=== PATIENT | male | born 1945 | race American Indian/Alaskan Native ===

== ENCOUNTER 2018-02-28 02:29 | Emergency (ER) | payer MEDICARE ==
[2018-02-28] MEDS ORDERED: NACL 0.9% 1000 ML 1,000 ML IV ONE (04:46)
[2018-02-28] MEDS ORDERED: SUBLIMAZE IV ONE (04:52)
--- NOTE | 2018-02-28 04:53 | Event Note ---
Date: 02/28/18 Presenting with abdominal pain and urinary retention. Kimbrough catheter ordered. Pain medication ordered. Belly soft. Testicles nontender. Bladder distended. Vital Signs 02/28/18 02/28/18 02:52 04:00 Temperature 97.4 F L Pulse Rate 74 65 Respiratory 20 20 Rate Blood Pressure 168/96 Blood Pressure 158/67 [Left] O2 Sat by Pulse 100 98 Oximetry
[2018-02-28 05:06] LABS: Basophils # (Auto) 0.1 K/mm3 (0.0-0.1); Basophils % (Auto) 0.6 % (0.0-1.8); Eosinophils # (Auto) 0.1 K/mm3 (0.0-0.4); Eosinophils % (Auto) 1.4 % (0.0-4.3); Hematocrit 43.6 % (35.5-45.6); Hemoglobin 14.8 gm/dl (11.8-15.2); Lymphocytes # (Auto) 1.3 K/mm3 (1.2-5.4); Lymphocytes % (Auto) 13.5 % (13.4-35.0); Mean Corpuscular HGB Conc 34 % (32-34); Mean Corpuscular Hemoglobin 30 pg (28-32); Mean Corpuscular Volume 88 fl (84-94); Monocytes # (Auto) 0.6 K/mm3 (0.0-0.8); Monocytes % (Auto) 6.7 % (0.0-7.3); Platelet Count 296 K/mm3 (140-440); Red Blood Count 4.94 M/mm3 (3.65-5.03); Red Cell Distribution Width 14.8 % (13.2-15.2)
[2018-02-28 05:32] LABS: Alanine Aminotransferase 14 units/L (7-56); Albumin 4.2 g/dL (3.9-5); BUN/Creatinine Ratio 11; Blood Urea Nitrogen 9 mg/dL (9-20); Calcium 8.8 mg/dL (8.4-10.2); Hemolysis Index 0
[2018-02-28 05:38] LABS: Bilirubin,Urine NEG (Negative); Blood,Urine MOD (Negative); Color,Urine Straw (Yellow); Mucus,Urine FEW /HPF; Protein,Urine <15 mg/dL mg/dL (Negative); Urobilinogen,Urine < 2.0 mg/dL (<2.0); WBC,Urine < 1.0 /HPF (0.0-6.0)
[2018-02-28] MEDS ORDERED: NACL 0.9% 1000 ML 1,000 ML ONE (05:45)
--- NOTE | 2018-02-28 07:16 | Emergency Department Report ---
ED Male HPI - General Chief complaint: Abdominal Pain Stated complaint: ABD PAIN Time Seen by Provider: 02/28/18 07:07 Source: patient, EMS Mode of arrival: Stretcher Limitations: No Limitations - History of Present Illness Initial comments: Patient is 72 years old male with no significant past medical history but also stated that he does not follow-up as any doctor. Patient presented to the ER with acute urine retention started yesterday. Patient stated that he never had anything like this before. Patient denied any fever, nausea or vomiting. He also denied any penile discharge or dysuria or frequency before. MD Complaint: other (acute urinary retention) - Related Data Home Medications Medication Instructions Recorded Confirmed Last Taken No Known Home Medications [No 02/28/18 02/28/18 Unknown Reported Home Medications] Allergies Allergy/AdvReac Type Severity Reaction Status Date / Time No Known Allergies Allergy Verified 02/28/18 02:54 ED Review of Systems ROS: Stated complaint: ABD PAIN Other details as noted in HPI Comment: All other systems reviewed and negative Constitutional: denies: chills Respiratory: denies: orthopnea, shortness of breath, SOB with exertion, SOB at rest, wheezing Cardiovascular: denies: chest pain Gastrointestinal: denies: abdominal pain, nausea, vomiting, diarrhea, constipation, hematemesis Genitourinary: denies: urgency, dysuria, frequency, hematuria, discharge, testicular pain, testicular mass Neurological: denies: headache, weakness ED Past Medical Hx - Past Medical History Previous Medical History?: Yes Additional medical history: totally blind - Surgical History Past Surgical History?: No - Social History Smoking Status: Never Smoker Substance Use Type: None - Medications Home Medications: Home Medications Medication Instructions Recorded Confirmed Last Taken Type No Known Home Medications [No 02/28/18 02/28/18 Unknown History Reported Home Medications] ED Physical Exam - General Limitations: No Limitations General appearance: alert, in distress (patient in obvious distress initially secondary to urinary retention) - Head Head exam: Present: atraumatic, normocephalic, normal inspection - Eye Eye exam: Present: normal appearance - ENT ENT exam: Present: normal exam, normal orophraynx, mucous membranes moist, normal external ear exam - Neck Neck exam: Present: normal inspection, full ROM. Absent: tenderness, meningismus, lymphadenopathy, thyromegaly - Respiratory Respiratory exam: Present: normal lung sounds bilaterally. Absent: respiratory distress, wheezes, rales, rhonchi, chest wall tenderness, accessory muscle use, decreased breath sounds, prolonged expiratory - Cardiovascular Cardiovascular Exam: Present: regular rate, normal rhythm, normal heart sounds - GI/Abdominal GI/Abdominal exam: Present: soft, normal bowel sounds. Absent: distended, tenderness, guarding, rebound, rigid, organomegaly, mass, bruit, pulsatile mass - Extremities Exam Extremities exam: Present: normal inspection, full ROM, normal capillary refill. Absent: tenderness, pedal edema, joint swelling, calf tenderness - Back Exam Back exam: Present: normal inspection, full ROM. Absent: tenderness, CVA tenderness (R), CVA tenderness (L), muscle spasm, paraspinal tenderness, vertebral tenderness, rash noted - Neurological Exam Neurological exam: Present: alert, oriented X3, CN II-XII intact, normal gait, reflexes normal - Skin Skin exam: Present: warm, intact, normal color ED Course Vital Signs 02/28/18 02/28/18 02/28/18 02:52 04:00 05:09 Temperature 97.4 F L Pulse Rate 74 65 Respiratory 20 20 20 Rate Blood Pressure 168/96 Blood Pressure 158/67 [Left] O2 Sat by Pulse 100 98 Oximetry 02/28/18 05:39 Temperature Pulse Rate 66 Respiratory 20 Rate Blood Pressure Blood Pressure 118/69 [Left] O2 Sat by Pulse 98 Oximetry ED Medical Decision Making - Lab Data Result diagrams: 02/28/18 04:54 02/28/18 04:54 - Medical Decision Making Patient is 72 years old male with no significant past medical history but also stated that he does not follow-up as any doctor. Patient presented to the ER with acute urine retention started yesterday. Patient stated that he never had anything like this before. Patient denied any fever, nausea or vomiting. He also denied any penile discharge or dysuria or frequency before. Mr. Dominguez stated that he is feeling much better after Kimbrough catheter insertion with immediate urine output of 2000 mL. I advised patient to keep the Kimbrough catheter and he is being provided with a leg catheter bag and advised to follow-up with Dr. López in the next 2-3 days. I also gave him Dr. Salvador to follow-up with the primary care physician. Patient understood the instructions very well. I also informed him to retain to the ER if his symptoms are not improving or if he feels that the Kimbrough catheter is not working. Critical care attestation.: If time is entered above; I have spent that time in minutes in the direct care of this critically ill patient, excluding procedure time. ED Disposition Clinical Impression: Acute retention of urine Disposition: DC- TO HOME OR SELFCARE Is pt being admited?: No Condition: Stable Instructions: Urinary Retention in Men (ED) Referrals: AQUILINO LÓPEZ MD [Staff Physician] - 3-5 Days ZULMA SALVADOR MD [Staff Physician] - 3-5 Days
[2018-02-28 09:50] VITALS: BP 122/55
== END 2018-02-28 09:49 | disposition home or self-care (01) ==
LOC: ED 02:29
DX: R33.9 Retention of urine, unspecified (principal)
CPT/HCPCS: 36415; 51702; 80053; 81001; 85025; 96374; 99284; J3010; J7030

== ENCOUNTER 2018-03-13 00:59 | Emergency (ER) | payer MEDICARE ==
--- NOTE | 2018-03-13 02:01 | Emergency Department Report ---
ED Male HPI - General Chief complaint: Urogenital-Male Stated complaint: ABD PAIN URINARY PAIN,URINARY PAIN & FREQUENCY Time Seen by Provider: 03/13/18 02:00 Source: patient Mode of arrival: Ambulatory Limitations: No Limitations - History of Present Illness Initial comments: Patient c/o Bloody urination which started this evening. 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 Complaint: other (Hematuria) -: Sudden, This evening Severity: severe Severity scale (0 -10): 7 Consistency: constant Improves with: none Worsens with: none blood in urine - Related Data Home Medications Medication Instructions Recorded Confirmed Last Taken No Known Home Medications [No 02/28/18 02/28/18 Unknown Reported Home Medications] Allergies Allergy/AdvReac Type Severity Reaction Status Date / Time No Known Allergies Allergy Verified 02/28/18 02:54 ED Review of Systems ROS: Stated complaint: ABD PAIN URINARY PAIN,URINARY PAIN & FREQUENCY Other details as noted in HPI Comment: All other systems reviewed and negative Constitutional: denies: chills, fever Eyes: denies: eye pain ENT: denies: ear pain Respiratory: denies: cough, orthopnea, shortness of breath Cardiovascular: denies: chest pain, palpitations Endocrine: no symptoms reported Gastrointestinal: abdominal pain. denies: nausea, vomiting, diarrhea Genitourinary: urgency, frequency, hematuria Skin: denies: rash, lesions Neurological: denies: headache, weakness, numbness Psychiatric: denies: anxiety, depression Hematological/Lymphatic: denies: easy bleeding, easy bruising ED Past Medical Hx - Past Medical History Previous Medical History?: No Hx of Cancer: Yes (Prostate Cancer) Additional medical history: totally blind - Surgical History Past Surgical History?: No - Social History Smoking Status: Current Every Day Smoker Substance Use Type: Alcohol - Medications Home Medications: Home Medications Medication Instructions Recorded Confirmed Last Taken Type No Known Home Medications [No 02/28/18 02/28/18 Unknown History Reported Home Medications] ED Physical Exam - General Limitations: No Limitations General appearance: alert, in distress - Head Head exam: Present: atraumatic, normocephalic, normal inspection - Eye Eye exam: Present: other (Patient is legally blind.) - ENT ENT exam: Present: normal exam, mucous membranes moist - Neck Neck exam: Present: normal inspection, full ROM. Absent: tenderness - Respiratory Respiratory exam: Present: normal lung sounds bilaterally. Absent: respiratory distress, wheezes, rales, rhonchi, stridor - Cardiovascular Cardiovascular Exam: Present: regular rate, normal rhythm, normal heart sounds - GI/Abdominal GI/Abdominal exam: Present: soft, tenderness (Suprapubic), guarding, normal bowel sounds - Extremities Exam Extremities exam: Present: normal inspection, full ROM, normal capillary refill - Back Exam Back exam: Present: normal inspection, full ROM. Absent: tenderness - Neurological Exam Neurological exam: Present: alert, oriented X3, CN II-XII intact - Psychiatric Psychiatric exam: Present: normal affect, normal mood - Skin Skin exam: Present: warm, dry, intact, normal color. Absent: rash ED Course Vital Signs 03/13/18 01:13 Temperature 97.6 F Pulse Rate 72 Respiratory 16 Rate Blood Pressure 147/75 O2 Sat by Pulse 97 Oximetry - Consultations Consultation #1: 03/13/18 06:26 I consulted the Urologist career orientation teacher at [facility] Dr Collazo. He accepted patient for transfer to [place] for further evaluation and management. ED Medical Decision Making - Lab Data Result diagrams: 03/13/18 02:24 03/13/18 02:24 Critical Care Time: Yes Critical care time in (mins) excluding proc time.: 40 Critical care attestation.: If time is entered above; I have spent that time in minutes in the direct care of this critically ill patient, excluding procedure time. ED Disposition Clinical Impression: Gross hematuria, Acute retention of urine [facility] Is pt being admited?: No Does the pt Need Aspirin: No Condition: Stable Referrals: PRIMARY CARE, [Primary Care Provider] - 3-5 Days Time of Disposition: 06:28
[2018-03-13] MEDS ORDERED: NACL 0.9% 1000 ML 1,000 ML IV ONE ×2 (02:16→04:02)
[2018-03-13 02:40] LABS: Basophils # (Auto) 0.1 K/mm3 (0.0-0.1); Basophils % (Auto) 0.7 % (0.0-1.8); Eosinophils # (Auto) 0.2 K/mm3 (0.0-0.4); Eosinophils % (Auto) 1.6 % (0.0-4.3); Hematocrit 37.1 % (35.5-45.6); Hemoglobin 12.6 gm/dl (11.8-15.2); Lymphocytes # (Auto) 1.5 K/mm3 (1.2-5.4); Mean Corpuscular HGB Conc 34 % (32-34); Mean Corpuscular Hemoglobin 30 pg (28-32); Mean Corpuscular Volume 89 fl (84-94); Monocytes # (Auto) 1.2 K/mm3 (0.0-0.8); Monocytes % (Auto) 10.1 % (0.0-7.3); Platelet Count 360 K/mm3 (140-440); Red Blood Count 4.19 M/mm3 (3.65-5.03); Red Cell Distribution Width 13.7 % (13.2-15.2)
[2018-03-13 02:49] LABS: INR 0.91 (0.87-1.13)
[2018-03-13 02:50] LABS: Partial Thromboplastin Time 31.5 Sec. (24.2-36.6)
[2018-03-13 02:58] LABS: Alanine Aminotransferase 20 units/L (7-56); Albumin 3.2 g/dL (3.9-5); BUN/Creatinine Ratio 9; Blood Urea Nitrogen 6 mg/dL (9-20); Calcium 8.5 mg/dL (8.4-10.2); Hemolysis Index 4
--- NOTE | 2018-03-13 03:31 | Cat Scan Report ---
FINAL REPORT PROCEDURE: CT ABDOMEN PELVIS WO CON TECHNIQUE: Computerized axial tomography of the abdomen and pelvis was performed without intravenous contrast. This study is performed without intravascular contrast material and its sensitivity for abdominal and pelvic pathology, including neoplasms, inflammation, abscess, free fluid, thrombosis, arterial dissection and infarction, is reduced compared with a contrast enhanced study. HISTORY: abdominal pain COMPARISON: No prior studies are available for comparison. FINDINGS: Visualized lower thorax: No significant abnormality. Liver: Normal size and attenuation. Spleen: Normal size and attenuation. Gallbladder and biliary system: Normal. Pancreas: Normal. Adrenals: Normal. Kidneys: There is mild bilateral hydronephrosis and hydroureter. There are no kidney stones or ureteral stones.. GI tract: There is no bowel obstruction, colitis or enteritis. The appendix is normal.. Lymph nodes and mesentery: Normal. Vasculature: Normal. Bladder: There is a Kimbrough catheter in the urinary bladder.. Reproductive organs: Prostate is enlarged.. Peritoneum: There is no ascites or free air, abscess or adenopathy.. Musculoskeletal structures: No significant abnormality. Other: None. IMPRESSION: There is mild bilateral hydronephrosis and hydroureter. There are no kidney stones or ureteral stones.. There is no bowel obstruction, colitis or enteritis. The appendix is normal.. There is a Kimbrough catheter in the urinary bladder.. Prostate is enlarged. There is no ascites or free air, abscess or adenopathy.. .
[2018-03-13 04:05] LABS: Bacteria,Urine 4+ /HPF (Negative); Bilirubin,Urine NEG (Negative); Blood,Urine LG (Negative); Color,Urine Red (Yellow); Urobilinogen,Urine < 2.0 mg/dL (<2.0)
[2018-03-13 04:13] LABS: WBC,Urine > 182.0 /HPF (0.0-6.0)
[2018-03-13 07:27] VITALS: BP 132/68
== END 2018-03-13 10:39 | disposition short-term general hospital (02) ==
LOC: ED 00:59
DX: R33.8 Other retention of urine (principal); R31.9 Hematuria, unspecified; H54.8 Legal blindness, as defined in USA
CPT/HCPCS: 36415; 51702; 74176; 80053; 81001; 85025; 85610; 85730; 86850; 86900; 86901; 87076; 87086; 87186; 99291; J7030

== ENCOUNTER 2021-12-12 16:23 | Emergency (ER) | payer MEDICARE ==
[2021-12-12 17:57] LABS: Basophils # (Auto) 0.1 K/mm3 (0.0-0.1); Basophils % (Auto) 1.5 % (0.0-1.8); Eosinophils # (Auto) 0.2 K/mm3 (0.0-0.4); Eosinophils % (Auto) 4.8 % (0.0-4.3); Hematocrit 32.9 % (35.5-45.6); Hemoglobin 10.8 gm/dl (11.8-15.2); Lymphocytes # (Auto) 1.4 K/mm3 (1.2-5.4); Lymphocytes % (Auto) 32.8 % (13.4-35.0); Mean Corpuscular HGB Conc 33 % (32-34); Mean Corpuscular Volume 84 fl (84-94); Monocytes # (Auto) 0.4 K/mm3 (0.0-0.8); Monocytes % (Auto) 9.6 % (0.0-7.3); Platelet Count 436 K/mm3 (140-440); Red Blood Count 3.91 M/mm3 (3.65-5.03); Red Cell Distribution Width 15.3 % (13.2-15.2)
[2021-12-12 18:01] LABS: Blood Urea Nitrogen 15 mg/dL (9-20); Calcium 9.2 mg/dL (8.4-10.2); Hemolysis Index 9
[2021-12-12 18:06] LABS: BUN/Creatinine Ratio 21
[2021-12-12] MEDS ORDERED: KETOROLAC 30 MG/1 ML INJ IM ONE (20:45)
--- NOTE | 2021-12-12 20:45 | Emergency Department Report ---
<MATT SWEENEYKwabena - Last Filed: 12/12/21 20:42> ED Abdominal Pain HPI - General Chief Complaint: Abdominal Pain Stated Complaint: ABDOMINAL PAIN Time Seen by Provider: 12/12/21 16:58 Source: EMS Mode of arrival: Stretcher Limitations: Other - History of Present Illness Initial Comments: Patient is a 76-year-old male inmate brought in for evaluation of lower abdominal pain, hematuria and flank pain beginning a few days ago. He denies fever or chills. Severity scale (0 -10): 0 - Related Data Previous Rx's Medication Instructions Recorded Last Taken Type Fluconazole [Diflucan TAB] 200 mg PO QDAY #1 tablet 12/12/21 Unknown Rx levoFLOXacin [Levaquin TAB] 500 mg PO QDAY #7 tablet 12/12/21 Unknown Rx traMADoL [Ultram] 50 mg PO Q6HR PRN #10 tablet 12/12/21 Unknown Rx Allergies Allergy/AdvReac Type Severity Reaction Status Date / Time No Known Allergies Allergy Verified 12/12/21 16:44 ED Review of Systems Constitutional: denies: chills, fever Respiratory: denies: cough, shortness of breath, wheezing Cardiovascular: denies: chest pain, palpitations Gastrointestinal: abdominal pain. denies: nausea, diarrhea Genitourinary: dysuria, hematuria. denies: urgency Musculoskeletal: denies: back pain, joint swelling, arthralgia Skin: denies: rash, lesions Neurological: denies: headache, weakness, paresthesias ED Past Medical Hx - Past Medical History Previous Medical History?: Yes Additional medical history: totally blind - Social History Smoking Status: Current Every Day Smoker Substance Use Type: Alcohol - Medications Home Medications: Home Medications Medication Instructions Recorded Confirmed Last Taken Type Fluconazole [Diflucan TAB] 200 mg PO QDAY #1 tablet 12/12/21 Unknown Rx levoFLOXacin [Levaquin TAB] 500 mg PO QDAY #7 tablet 12/12/21 Unknown Rx traMADoL [Ultram] 50 mg PO Q6HR PRN #10 tablet 12/12/21 Unknown Rx ED Physical Exam - General Limitations: Other General appearance: alert, in no apparent distress - Head Head exam: Present: atraumatic, normocephalic - Respiratory Respiratory exam: Present: normal lung sounds bilaterally. Absent: respiratory distress - Cardiovascular Cardiovascular Exam: Present: regular rate, normal rhythm, normal heart sounds - GI/Abdominal GI/Abdominal exam: Present: soft. Absent: distended, tenderness - Rectal Rectal exam: Present: deferred - Neurological Exam Neurological exam: Present: alert, oriented X3 - Psychiatric Psychiatric exam: Present: normal affect, normal mood - Skin Skin exam: Present: warm, dry, intact, normal color ED Medical Decision Making - Lab Data Result diagrams: 12/12/21 17:19 12/12/21 17:19 - Medical Decision Making CBC and CMP unremarkable. Urinalysis and CT abdomen and pelvis pending. Signed out at shift change to Dr. Valles for dispo per CT and urinalysis. ED Disposition Clinical Impression: Enlarged prostate, Hematuria, Flank pain Disposition: 21 [address]/LAW ENFORCEMENT Condition: Stable Instructions: Benign Prostatic Hyperplasia, Prostate Cancer Additional Instructions: Return to the emergency department should you develop worsening symptoms, inability to tolerate food or liquids, high fever or any other concerns Prescriptions: Fluconazole [Diflucan TAB] 200 mg PO QDAY #1 tablet levoFLOXacin [Levaquin TAB] 500 mg PO QDAY #7 tablet traMADoL [Ultram] 50 mg PO Q6HR PRN #10 tablet PRN Reason: Pain Referrals: AQUILINO LÓPEZ MD [Staff Physician] - [facility] (Dr. López is a urologist. It is important that you follow-up with him for further evaluation of your enlarged prostate) <BÁRBARA VALLES - Last Filed: 12/12/21 22:06> ED Review of Systems ROS: Stated complaint: ABDOMINAL PAIN Other details as noted in HPI ED Course Vital Signs 12/12/21 12/12/21 12/12/21 16:42 16:44 17:53 Temperature 97.9 F Pulse Rate 79 Respiratory 14 Rate Blood Pressure Blood Pressure 128/74 [Left] O2 Sat by Pulse 96 100 Oximetry 12/12/21 12/12/21 12/12/21 20:53 21:00 21:01 Temperature 97.9 F Pulse Rate 60 73 85 Respiratory 11 L 16 23 Rate Blood Pressure 118/66 118/66 Blood Pressure 118/66 [Left] O2 Sat by Pulse 99 95 95 Oximetry 12/12/21 12/12/21 12/12/21 21:15 21:31 21:45 Temperature Pulse Rate 74 69 58 L Respiratory 18 11 L 15 Rate Blood Pressure 118/66 118/66 118/66 Blood Pressure [Left] O2 Sat by Pulse 94 100 97 Oximetry ED Medical Decision Making - Lab Data Result diagrams: 12/12/21 17:19 12/12/21 17:19 - Radiology Data Radiology results: report reviewed (CT abdomen pelvis), image reviewed (CT abdomen pelvis) [facility] [address] [place] [address] Cat Scan Report Signed Patient: SUSAN ORTIZ JUNIOR MR#: [id number] : 1945 Acct:[id number] Age/Sex: 76 / M ADM Date: 12/12/21 Loc: ED Attending Dr: Ordering Physician: MATT SWEENEY MD Date of Service: 12/12/21 Procedure(s): CT abdomen pelvis wo con Accession Number(s): [id number] cc: MATT SWEENEY MD CT ABDOMEN AND PELVIS WITHOUT CONTRAST INDICATION / CLINICAL INFORMATION: Hematuria, lower abdominal pain. TECHNIQUE: Axial CT images were obtained through the abdomen and pelvis without IV contrast. All CT scans at this location are performed using CT dose reduction for ALARA by means of automated exposure control. COMPARISON: 03/13/2018 FINDINGS: LOWER CHEST: Emphysematous change in bilateral lung bases. AORTA / ARTERIES: Mild atherosclerotic calcification without acute abnormality. IVC / VEINS: No significant abnormality. LYMPH NODES: No significant adenopathy. COLON: No significant abnormality. APPENDIX: No significant abnormality. STOMACH / SMALL BOWEL: No significant abnormality. PERITONEUM: No free fluid. No free air. No fluid collection. LIVER: No significant abnormality. GALLBLADDER: No significant abnormality. BILE DUCTS: No significant abnormality. PANCREAS: No significant abnormality. SPLEEN: No significant abnormality. ADRENALS: No significant abnormality. RIGHT KIDNEY / URETER: No significant abnormality. LEFT KIDNEY / URETER: Left renal cysts. No acute abnormality. URINARY BLADDER: No significant abnormality. REPRODUCTIVE ORGANS: The prostate is very large measuring 6.8 x 7.9 x 6.3 cm. The prostate impresses upon the posterior urinary bladder wall. SKELETAL SYSTEM: No significant abnormality. ADDITIONAL FINDINGS: None. IMPRESSION: 1. The prostate is very enlarged and is impressing on the posterior bladder wall. Otherwise no CT findings to explain symptomatology. Signer Name: Corwin Diaz DO Signed: 12/12/2021 9:32 PM Workstation Name: [id number] Transcribed By: JOVITA Dictated By: CORWIN DIAZ DO Electronically Authenticated By: CORWIN DIAZ DO Signed Date/Time: 12/12/212131 DD/ 26 TD/TT: Print Cancel Critical care attestation.: If time is entered above; I have spent that time in minutes in the direct care of this critically ill patient, excluding procedure time. ED Disposition Is pt being admited?: No Does the pt Need Aspirin: No Time of Disposition: 22:06
--- NOTE | 2021-12-12 21:37 | Cat Scan Report ---
CT ABDOMEN AND PELVIS WITHOUT CONTRAST INDICATION / CLINICAL INFORMATION: Hematuria, lower abdominal pain. TECHNIQUE: Axial CT images were obtained through the abdomen and pelvis without IV contrast. All CT scans at this location are performed using CT dose reduction for ALARA by means of automated exposure control. COMPARISON: 03/13/2018 FINDINGS: LOWER CHEST: Emphysematous change in bilateral lung bases. AORTA / ARTERIES: Mild atherosclerotic calcification without acute abnormality. IVC / VEINS: No significant abnormality. LYMPH NODES: No significant adenopathy. COLON: No significant abnormality. APPENDIX: No significant abnormality. STOMACH / SMALL BOWEL: No significant abnormality. PERITONEUM: No free fluid. No free air. No fluid collection. LIVER: No significant abnormality. GALLBLADDER: No significant abnormality. BILE DUCTS: No significant abnormality. PANCREAS: No significant abnormality. SPLEEN: No significant abnormality. ADRENALS: No significant abnormality. RIGHT KIDNEY / URETER: No significant abnormality. LEFT KIDNEY / URETER: Left renal cysts. No acute abnormality. URINARY BLADDER: No significant abnormality. REPRODUCTIVE ORGANS: The prostate is very large measuring 6.8 x 7.9 x 6.3 cm. The prostate impresses upon the posterior urinary bladder wall. SKELETAL SYSTEM: No significant abnormality. ADDITIONAL FINDINGS: None. IMPRESSION: 1. The prostate is very enlarged and is impressing on the posterior bladder wall. Otherwise no CT fin dings to explain symptomatology. Signer Name: Corwin Alicia DO Signed: 12/12/2021 9:32 PM Workstation Name: [id number]
[2021-12-12 21:46] LABS: Mucus,Urine 2+ /HPF
[2021-12-12 21:54] LABS: Bilirubin,Urine Negative (Negative); Color,Urine Amber (Yellow)
[2021-12-12 21:55] LABS: Blood,Urine Large (Negative); PH,Urine 6.5 (5.0-7.0); Protein,Urine <15 mg/dL mg/dL (Negative); RBC,Urine > 182.0 /HPF (0.0-6.0)
[2021-12-12 22:23] VITALS: BP 119/63
== END 2021-12-12 22:37 ==
LOC: ED 16:23
DX: R10.30 Lower abdominal pain, unspecified (principal); R31.9 Hematuria, unspecified; N40.0 Benign prostatic hyperplasia without lower urinary tract symptoms; F17.200 Nicotine dependence, unspecified, uncomplicated; Z79.899 Other long term (current) drug therapy
CPT/HCPCS: 36415; 74176; 80048; 81001; 85025; 96372; 99284; J1885